=== PATIENT | female | born 1995 | race Two or more races ===

== ENCOUNTER → 2016-08-20 | Outpatient (CLI) | payer OTHER ==
[2016-08-20 12:51] LABS: HEMATOCRIT 39.6 % (35.0-45.0); HEMOGLOBIN 13.2 gm/dL (12.0-16.0); MEAN CELL VOLUME 86.6 FL (83-96); MEAN CORPUSCULAR HEMOGLOBIN 28.8 PG (28-34); MEAN CORPUSCULAR HGB CONC 33.3 g/dL (30-36); MEAN PLATELET VOLUME 8.8 FL (6.5-11.5); RED BLOOD COUNT 4.58 X10e (3.90-5.30); RED CELL DISTRIBUTION WIDTH 12.5 % (11.0-15.5); WHITE BLOOD COUNT 5.8 X10e3 (4.0-10.5)
[2016-08-20 14:14] LABS: ALBUMIN SERUM 4.6 g/dL (3.5-5.0); CALCIUM SERUM 9.6 mg/dL (8.4-10.2); CREATININE SERUM 0.4 mg/dL (0.6-1.4); GLOM FILT RATE Estimated 146.8 mL/min (>60); POTASSIUM 4.1 mmol/L (3.5-5.1); PROTEIN TOTAL SERUM 7.7 g/dL (6.0-8.3)
[2016-08-22 10:08] LABS: HA AB IGM (HEPPAN) Nonreactive (()); HB CORE AB IGM (HEPPAN) Nonreactive (Nonreactive); HB S AG (HEPPAN) Reactive (Nonreactive); HEP C AB (HEPPAN) Nonreactive (Nonreactive); HEP C AB SIGNAL TO CUTOFF 0.41 ratio (<1.00); HEPATITIS B SURFACE ANTIBODY <5 mIU/mL (>=10); HEPATITIS Be ANTIGEN Reactive (())
== END | disposition home or self-care (01) ==
LOC: CLAB 11:59
PROVIDERS: Internal Medicine
DX: B19.10 Unspecified viral hepatitis B without hepatic coma (principal)
CPT/HCPCS: 36415; 80053; 80074; 85027; 86706; 86707; 87350; 87517

== ENCOUNTER → 2016-08-21 | Outpatient (CLI) | payer OTHER ==
--- NOTE | ~2016-08-21 | US6 ---
[facility] A Service of [facility] RADIOLOGY TEXT RESULTS PATIENT: JOCELINE HARP LOCATION: [facility] : [birth year] UNIT #: [id number] AGE: [address]: Robe Rosen MD SEX: F ORDER DR: [id number] [facility] [address] [place], [place] [address] [id number] O MR#: [id number] Acc #: [id number] NAME: JOCELINE HARP : 1995 SEX: F STUDY DATE/TIME: 08/21/2016 11:17 UNIT: [facility] ROOM: STUDY DESCRIPTION: US Abdominal Limited Attending Physician: Robe Rosen M.D. Ordering Physician: Robe Rosen M.D. Primary Care Physician: Val Heath M.D. MEDICAL IMAGING REPORT This report is preliminary unless electronic signature is present EXAM Right upper quadrant abdominal ultrasound. INDICATIONS Hepatitis B. Observation for cirrhosis and hepatocellular carcinoma. PROCEDURE De Guzman-scale and Doppler imaging right upper quadrant of the abdomen. COMPARISON None. FINDINGS Visualized portions of pancreas unremarkable. Liver measures 12 cm, has homogeneous echotexture. No liver mass on submitted images. Unremarkable gallbladder. Right kidney measures 10 cm. Common duct measures 3 mm. IMPRESSION Negative right upper quadrant ultrasound. Dictated by... Bethel Carvajal M.D. THIS IS AN ELECTRONICALLY VERIFIED REPORT Bethel Carvajal M.D. at 08/24/2016 9:45 AM GAL/katheryn TD: 08/21/2016 15:44 JOB #: [id number] MEDICAL IMAGING REPORT Page 1 of 1 COPY
== END | disposition home or self-care (01) ==
LOC: CWCC 11:02
DX: B19.10 Unspecified viral hepatitis B without hepatic coma (principal)
CPT/HCPCS: 76705

== ENCOUNTER 2016-08-22 14:27 | Emergency (ER) | payer OTHER | END 2016-08-22 14:36 | disposition home or self-care (01) | LOC: CFTX 14:27 | DX: S05.01XA Injury of conjunctiva and corneal abrasion without foreign body, right eye, initial encounter (principal); X58.XXXA Exposure to other specified factors, initial encounter; Y92.9 Unspecified place or not applicable | CPT/HCPCS: 99283 ==